=== PATIENT | male | born 1950 | race Two or more races ===

== ENCOUNTER → 2021-12-18 | Emergency (ER) | payer OTHER ==
[~2021-12-18] VITALS: Ht 177.8 cm; Wt 90.7 kg
[~2021-12-18] MED LIST: DEPAKOTE ER500 MG
== END | disposition left against medical advice (07) ==
LOC: ER 23:19
DX: Z53.21 Procedure and treatment not carried out due to patient leaving prior to being seen by health care provider (principal)